=== PATIENT | male | born 1955 | race Two or more races ===

== ENCOUNTER 2021-04-24 08:22 | Day surgery (SDC) | payer OTHER ==
[2021-04-24] MEDS ORDERED: COZAAR100 MG PO (15:33)
[2021-04-24] MEDS ORDERED: TOPROL XL50 M1 PO (15:33)
== END 2021-04-24 14:00 | disposition home or self-care (01) ==
LOC: ADM 08:22 → AMB-ENDOS 08:22
PROVIDERS: ATTEND Colon & Rectal Surgery
DX: K62.89 Other specified diseases of anus and rectum (principal); K64.4 Residual hemorrhoidal skin tags; E10.9 Type 1 diabetes mellitus without complications; E78.5 Hyperlipidemia, unspecified; Z80.0 Family history of malignant neoplasm of digestive organs; I10 Essential (primary) hypertension; Z85.038 Personal history of other malignant neoplasm of large intestine

== ENCOUNTER 2021-04-24 15:48 | Inpatient (IN) | payer OTHER ==
[~2021-04-24] VITALS: Ht 165.1 cm; Wt 94.8 kg
[~2021-04-24 15:48] MED LIST: COZAAR100 MG PO; TOPROL XL50 M1 PO
== END 2021-04-27 11:49 | disposition home or self-care (01) | DRG 331 ==
LOC: O/R 04-25 09:43 → SURH 04-25 09:43
PROVIDERS: ADMIT Colon & Rectal Surgery; ATTEND Colon & Rectal Surgery
PROC: 07TC4ZZ Resection of Pelvis Lymphatic, Percutaneous Endoscopic Approach (ICD-10-PCS; 2021-04-25)
PROC: 0DJD8ZZ Inspection of Lower Intestinal Tract, Via Natural or Artificial Opening Endoscopic (ICD-10-PCS; 2021-04-25)
PROC: 0DTE4ZZ Resection of Large Intestine, Percutaneous Endoscopic Approach (ICD-10-PCS; principal; 2021-04-25 20:00)
DX: C18.7 Malignant neoplasm of sigmoid colon (principal); Z20.822 Contact with and (suspected) exposure to COVID-19

== ENCOUNTER 2021-11-27 06:40 | Day surgery (SDC) | payer OTHER ==
[~2021-11-27 06:40] MED LIST changes: +ADULT LOW DOSE81 M1 PO; +LOPI PO
== END 2021-11-27 14:40 | disposition home or self-care (01) ==
LOC: CIR.AMB 06:40
PROVIDERS: ATTEND Colon & Rectal Surgery
DX: C19 Malignant neoplasm of rectosigmoid junction (principal); Z53.8 Procedure and treatment not carried out for other reasons; Z20.822 Contact with and (suspected) exposure to COVID-19; I10 Essential (primary) hypertension; R73.03 Prediabetes; C78.7 Secondary malignant neoplasm of liver and intrahepatic bile duct